=== PATIENT | female | born 1990 ===

== ENCOUNTER 2021-10-12 00:17 | Emergency (ER) | payer OTHER ==
[~2021-10-12] VITALS: Ht 160 cm; Wt 81.6 kg
[2021-10-12 00:19] VITALS: BP 128/90
--- NOTE | 2021-10-12 00:19 | NUR ---
TO BED AMBULATORY
--- NOTE | 2021-10-12 00:37 | NUR ---
DIANNA davidson at bedside for examination
[2021-10-12 00:58] LABS: BASOPHILS # (AUTO) 0.1 K/uL (0.00-0.22); BASOPHILS % (AUTO) 0.7 % (0.0-2.0); EOSINOPHILS # (AUTO) 0.2 K/uL (0-0.4); EOSINOPHILS % (AUTO) 2.2 % (0.0-4.0); HEMATOCRIT 36.4 % (36-48); HEMOGLOBIN 12.4 g/dL (12.0-16.0); LYMPHOCYTES # (AUTO) 3.5 K/uL (2.5-16.5); LYMPHOCYTES % (AUTO) 40.1 % (20.5-51.1); MEAN CORPUSCULAR HEMOGLOBIN 28 pg (27-31); MEAN CORPUSCULAR HGB CONC 34 g/dL (33-37); MEAN CORPUSCULAR VOLUME 81.4 fL (80-94); MONOCYTES # (AUTO) 0.5 K/uL (0.8-1.0); MONOCYTES % (AUTO) 6.3 % (1.7-9.3); NEUTROPHILS # (AUTO) 4.4 K/uL (1.8-7.7); NEUTROPHILS % (AUTO) 50.7 % (42.2-75.2); PLATELET COUNT (AUTO) 298 K/uL (140-450); RED BLOOD CELL COUNT(AUTO) 4.47 MIL/uL (4.20-5.40); RED CELL DISTRIBUTION WIDTH 14.9 % (11.6-13.7); WHITE BLOOD COUNT (AUTO) 8.7 K/uL (4.8-10.8)
[2021-10-12 00:58] LABS: APPEARANCE,URINE CLEAR (CLEAR); BILIRUBIN,URINE NEGATIVE (NEGATIVE); BLOOD, URINE NEGATIVE (NEGATIVE); COLOR,URINE YELLOW (YELLOW); LEUKOCYTE ESTERASE ,URINE NEGATIVE (NEGATIVE); NITRITE, URINE NEGATIVE (NEGATIVE); PH,URINE 6.5 (5.0-9.0); UGLUCOSE NEGATIVE (NEGATIVE)
--- NOTE | 2021-10-12 01:24 | NUR ---
patient ambulated to the bathroom
[2021-10-12] MEDS ORDERED: ACETAMINOPHEN EXTRA STRENGTH 500 MG TAB PO ONE (02:45)
[2021-10-12] MEDS ORDERED: ACET-10509 PO (03:21)
--- NOTE | 2021-10-12 03:32 | NUR ---
Patient discharged with v/s stable. Written and verbal after care instructions given and explained. Patient alert, oriented and verbalized understanding of instructions. Ambulatory with steady gait. All questions addressed prior to discharge. ID band removed. Patient advised to follow up with PMD. Rx of tylenol extra strenth tab given. Patient educated on indication of medication including possible reaction and side effects. Opportunity to ask questions provided and answered.
[2021-10-12 03:33] VITALS: BP 104/58
== END 2021-10-12 03:32 | disposition home or self-care (01) ==
LOC: MED 00:17
DX: O20.0 Threatened abortion (principal); E03.9 Hypothyroidism, unspecified; Z3A.01 Less than 8 weeks gestation of pregnancy; Z79.899 Other long term (current) drug therapy; Z90.49 Acquired absence of other specified parts of digestive tract; Z98.890 Other specified postprocedural states
CPT/HCPCS: 36415; 76817; 81003; 81025; 84702; 85025; 86900; 86901; 99285

== ENCOUNTER 2023-07-07 20:38 | Emergency (ER) | payer OTHER ==
[~2023-07-07] VITALS: Ht 157.5 cm; Wt 68.0 kg
[~2023-07-07 20:38] MED LIST: ACET-10509 PO
[2023-07-07 20:51] VITALS: BP 131/70; PULSE 72; RESP 16; TEMP 97.4; O2SAT 100
[2023-07-07] MEDS ORDERED: KETOROLAC 15 MG/ML VIAL IVP ONE (23:25)
[2023-07-07] MEDS ORDERED: CEPH-588 PO (23:27)
[2023-07-07] MEDS ORDERED: NAPR-1704 PO (23:27)
[2023-07-07] MEDS ORDERED: cefTRIAXone 1,000 MG VIAL ONE (23:31)
[2023-07-08 00:21] VITALS: BP 127/73; PULSE 69; RESP 16; O2SAT 100
== END 2023-07-08 00:21 | disposition home or self-care (01) ==
LOC: MED 20:38
DX: N64.59 Other signs and symptoms in breast (principal); R50.9 Fever, unspecified; R11.0 Nausea; E03.9 Hypothyroidism, unspecified; Z79.899 Other long term (current) drug therapy; Z98.890 Other specified postprocedural states
CPT/HCPCS: 81025; 96365; 96375; 99284; J0696; J1885

== ENCOUNTER 2024-02-25 08:36 | Emergency (ER) | payer OTHER ==
[~2024-02-25] VITALS: Ht 160 cm; Wt 66.0 kg
[~2024-02-25 08:36] MED LIST changes: +CEPH-588 PO; +NAPR-1704 PO
[2024-02-25 08:54] VITALS: BP 108/83; PULSE 81; RESP 16; TEMP 97.9; O2SAT 100
== END 2024-02-25 09:51 | disposition home or self-care (01) ==
LOC: MED 08:36
DX: M77.8 Other enthesopathies, not elsewhere classified (principal); E03.9 Hypothyroidism, unspecified; Z79.899 Other long term (current) drug therapy
CPT/HCPCS: 99283